=== PATIENT | male | born 1995 | race Caucasian/White ===

== ENCOUNTER 2017-03-20 02:42 | Emergency (ER) | payer OTHER ==
[~2017-03-20] VITALS: Ht 180.3 cm; Wt 77.9 kg
[2017-03-20 02:46] VITALS: BP 123/72; TEMP 37.1; Ht 180.3 cm; Wt 77.9 kg
[2017-03-20] MEDS ORDERED: XYLOCAINE 1%/SOD BICARB 20 ML VIAL INFIL ONE (03:30)
--- NOTE | 2017-03-20 03:31 | EMERGENCY ROOM VISIT NOTE ---
ED Visit Note First contact with patient: 03:17 CHIEF COMPLAINT: Hand laceration HISTORY OF PRESENT ILLNESS: This 21 year old male patient presents to the emergency department ambulatory after cutting the left hand he states that he broke a glass in the sink and was picking up the pieces and cut his hand. The bleeding has not stopped. Denies weakness or numbness of the hand or fingers. The patient denies any pain. The patient denies any other injuries. The patient' s Tetanus shot is up to date. REVIEW OF SYSTEMS: A 6 system review of systems was completed with positives and pertinent negatives listed in the HPI. ALLERGIES: No known drug allergies MEDICATIONS: Naproxen PMH: Tendinitis SOCIAL HISTORY: The patient does not smoke. He lives locally PHYSICAL EXAM: Vital Signs: Reviewed Nurse's notes, vital signs stable. GENERAL : This is a 21-year-old male, in no acute distress, well-developed, well- nourished. SKIN: There is a 2 cm long laceration on the dorsal aspect of the left hand at the second MCP. The edges gape apart with traction. There is no foreign material in the wound and it looks clean. There is minimal bleeding. The joint space and tendon is visible in the base of the wound. Normal strength and movement of the fingers and wrist. Capillary refill less than 2 seconds. Normal sensation to light and sharp touch. EMERGENCY DEPARTMENT COURSE: I examined the patient. Using sterile technique the wound was cleaned with Betadine. The area was sterilely draped. 4 ml of 1% buffered lidocaine was used to anesthetize the laceration on the hand. Once the patient was numb, the wound was copiously irrigated under pressure with sterile saline. The wound was explored and there does appear to be laceration to the extensor tendon. There may be involvement of the joint capsule. The laceration was repaired using 5 simple interrupted 5-0 nylon sutures with the wound edges being well approximated. The patient tolerated the procedure well. The bleeding stopped. The area was cleaned with sterile saline and dressed with bacitracin ointment and bandage. An x-ray was obtained and reviewed by myself and Dr. Pryor. There is no obvious pneumarthrosis or bony abnormality. I did ask to evaluate the patient and he assessed the wound. He recommended follow-up with hand surgery. The patient was placed in a splint. He will be placed on Keflex. He should contact orthopedics first thing Wednesday morning to schedule a follow- up appointment. He should return with worsening symptoms. The patient was discharged home in good condition. DIAGNOSIS: Hand laceration DISCHARGE INSTRUCTIONS & TREATMENT: Keep wound clean and dry. Do not allow any crusting or dried blood to accumulate on sutures. If this occurs, use a 1:1 solution of hydrogen peroxide/water on a Q-tip to clean the wound. Use an antibiotic ointment for 3-4 days, then let wound dry. Suture removal in 10-12 days. Return sooner for any signs of infection (increasing redness, swelling, drainage). Ice and elevate for swelling and pain. Ibuprofen 600 mg Keep covered when in sun until sutures removed then SPF 50 or higher for one year. Vitamin E oil if desired two weeks after suture removal for reduction of scar. Keflex as prescribed, until finished Wear the splint until seen by orthopedics. Contact orthopedics first thing Wednesday for a follow up appointment for the tendon injury Return with worsening symptoms Current/Historical Medications Scheduled Cephalexin Monohydrate (Keflex), 500 MG PO QID Naproxen (Naprosyn), 500 MG PO BIDM Allergies Coded Allergies: No Known Allergies (Unverified , 03/20/17) Vital Signs Date Time Temp Pulse Resp B/P (MAP) Pulse Ox O2 Delivery O2 Flow Rate FiO2 03/20/17 05:21 75 18 99 03/20/17 02:46 37.1 124 18 123/72 96 Room Air Medications Administered Medications (Trade) Dose Ordered Sig/Lisandra Route Start Time Stop Time Status Last Admin Dose Admin Cephalexin Monohydrate (Keflex 500MG Home Pack) 1 homepack NOW ONCE PO 03/20/17 04:45 03/20/17 04:46 DC 03/20/17 04:45 1 HOMEPACK Departure Information Impression Primary Impression: Laceration Additional Impression: Tendon laceration Dispostion Home / Self-Care Condition GOOD Prescriptions Cephalexin Monohydrate (KEFLEX) 500 Mg Cap 500 MG PO QID for 7 Days, #28 CAP Prov: Aziza Herman PA-C 03/20/17 Referrals No Doctor, Assigned (PCP) Beau Funk MD Patient Instructions ED Laceration Tendon, My [facility] Additional Instructions Keep wound clean and dry. Do not allow any crusting or dried blood to accumulate on sutures. If this occurs, use a 1:1 solution of hydrogen peroxide/ water on a Q-tip to clean the wound. Use an antibiotic ointment for 3-4 days, then let wound dry. Suture removal in 10-12 days. Return sooner for any signs of infection (increasing redness, swelling, drainage). Ice and elevate for swelling and pain. Ibuprofen 600 mg Keep covered when in sun until sutures removed then SPF 50 or higher for one year. Vitamin E oil if desired two weeks after suture removal for reduction of scar. Keflex as prescribed, until finished Wear the splint until seen by orthopedics. Contact orthopedics first thing Wednesday morning for a follow up appointment for the tendon injury Return with worsening symptoms Problem Qualifiers
[2017-03-20] MEDS ORDERED: NAPR-1169 PO (04:27)
--- NOTE | 2017-03-20 04:34 | EMERGENCY ROOM VISIT NOTE ---
ED Visit Note First contact with patient: 03:17 Patient seen by me with the physician ophthalmic medical assistant I agree that there may be tendon involvement of the extensor tendon and may be into the joint space is a possibility that it could have been violated. I agree with her assessment we will suture placed the patient in a splint and placed on antibiotics with follow -up to hand surgeon this week Current/Historical Medications Scheduled Naproxen (Naprosyn), 500 MG PO BIDM Allergies Coded Allergies: No Known Allergies (Unverified , 03/20/17) Vital Signs Date Time Temp Pulse Resp B/P (MAP) Pulse Ox O2 Delivery O2 Flow Rate FiO2 03/20/17 02:46 37.1 124 18 123/72 96 Room Air Departure Information Referrals No Doctor, Assigned (PCP) Patient Instructions My [facility]
[2017-03-20] MEDS ORDERED: CEPHALEXIN 500MG HOME PACK 1 EA BTL PO ONE (04:45)
[2017-03-20] MEDS ORDERED: CEPH500C2 PO (05:00)
[2017-03-20 05:21] VITALS: PULSE 75; O2SAT 99
--- NOTE | 2017-03-20 06:56 | DIAGNOSTIC IMAGING REPORT ---
LEFT HAND MIN 3 VIEWS ROUTINE CLINICAL HISTORY: left hand laceration trauma. Pain. COMPARISON: None. DISCUSSION: The bones and joint spaces appear intact. There is no evidence of fracture, dislocation or bony disease. There is no evidence for soft tissue swelling. IMPRESSION: Negative study. The above report was generated using voice recognition software. It may contain grammatical, syntax or spelling errors. Electronically signed by: Tyler Castellon M.D. 03/20/2017 6:54 AM Dictated Date/Time: 03/20/2017 6:54 AM
== END 2017-03-20 05:24 | disposition home or self-care (01) ==
LOC: C.EDB 02:45
DX: S61.412A Laceration without foreign body of left hand, initial encounter (principal); S66.922A Laceration of unspecified muscle, fascia and tendon at wrist and hand level, left hand, initial encounter; W25.XXXA Contact with sharp glass, initial encounter; Y92.89 Other specified places as the place of occurrence of the external cause